=== PATIENT | male | born 2000 | race Caucasian/White ===

== ENCOUNTER 2019-04-27 18:10 | Emergency (ER) | payer OTHER, SELFPAY ==
[2019-04-27 18:54] VITALS: BP 128/66; PULSE 91; RESP 16; TEMP 36.7; O2SAT 97
--- NOTE | 2019-04-27 19:09 | ED.URI ---
HPI - URI/Sore Throat General Chief Complaint: Upper Respiratory Infection Stated Complaint: Cold/Flu symptoms Time Seen by Provider: 04/27/19 19:10 Source: patient and family History of Present Illness HPI Narrative: patient presents with cough, generalized body aches and fever for the past 24 hours. Patient states he has been exposed to influenza and wonders if he has the flu. no shortness of breath and no chest pain. normally healthy individual. Related Data Allergies Allergy/AdvReac Type Severity Reaction Status Date / Time No Known Allergies Allergy Verified 04/27/19 19:28 Review of Systems Review of Systems: Narrative: CONSTITUTIONAL: Denies chills, or sweats. Reports fever and generalized body aches EYES: Denies visual changes, redness, or discharge. ENT: Denies otalgia. Reports nasal congestion runny nose and sore throat CARDIOVASCULAR: Denies chest pain, palpitations, or edema. RESPIRATORY: Denies dyspnea. Reports occasional cough GASTROINTESTINAL: Denies abdominal pain, nausea, vomiting, or diarrhea. GENITOURINARY: Denies dysuria or hematuria. SKIN: Denies rash or itching. MUSCULOSKELETAL: Denies back pain, joint pain, or myalgia. Reports generalized body aches NEUROLOGIC: Denies headache, numbness, or weakness. PSYCHIATRIC: Denies anxiety or depression. [facility] Social History Social History Gender identity (if verbalized by the patient): Male Comments At time of signature, agree with nursing past medical, surgical, social and family history. There is no relevant family history pertinent to the presenting complaint Exam Narrative: Exam Narrative: GENERAL APPEARANCE: The patient is a well-developed, well-nourished , in no acute distress. SKIN: Skin is warm and dry without erythema, swelling or exudate. There is good turgor. No tenting. HEAD: Atraumatic. Normocephalic. No temporal or scalp tenderness. EYES: Moist and bright. Sclera and conjunctivae normal. No discharge. PERRLA. Extraocular motions intact. Gross visual acuity intact. EARS: Pinna is normal shape and contour. Clear external auditory canals. TM pearly flood with good cone of light, no erythema or suppuration. Bilateral cerumen noted no gross hearing deficit. NOSE: pink, moist mucosa with good air movement. Clear rhinorrhea without nasal flaring. Septum midline. Mouth: moist mucous membranes. THROAT; mild erythema noted to posterior oropharynx with moderate postnasal drainage. Without exudate or ulceration.. Uvula midline. Normal movement of soft palate. Mild pharyngeal erythremia no exudate no trismus no drooling able to open mouth fully NECK: Supple and nontender with full range of motion without discomfort. No meningeal signs. LUNGS: Equal and bilateral breath sounds without wheezes, rales or rhonchi. CHEST: The chest wall is without retractions or use of accessory muscles. HEART: Has a regular rate and rhythm without murmur, gallops, click or rub. ABDOMEN: Soft, nontender with positive active bowel sounds. No rebound tenderness. EXTREMITIES: Without cyanosis, clubbing or edema. Equal 2+ distal pulses and 2 second capillary refill noted. NEUROLOGIC: alert, active, developmentally normal for age. The patient moves all extremities with normal muscle strength. Normal muscle tone is noted. Normal coordination is noted. NO focal neurological findings noted. Course Vital Signs Vital signs: Vital Signs Temperature 36.7 C 04/27/19 18:54 Pulse Rate 91 04/27/19 18:54 Respiratory Rate 16 04/27/19 18:54 Blood Pressure 128/66 04/27/19 18:54 Pulse Oximetry 97 04/27/19 18:54 Temperature 36.7 C 04/27/19 18:54 Pulse Rate 91 04/27/19 18:54 Respiratory Rate 16 04/27/19 18:54 Blood Pressure 128/66 04/27/19 18:54 Pulse Oximetry 97 04/27/19 18:54 MDM - URI/Sore Throat Differential Diagnosis Differential diagnosis: Likely upper respiratory infection, croup, otitis media, vi
== END 2019-04-27 19:42 | disposition home or self-care (01) ==
PROVIDERS: Emergency Provider Nurse Practitioner Family
DX: J06.9 Acute upper respiratory infection, unspecified (principal); J02.8 Acute pharyngitis due to other specified organisms
CPT/HCPCS: 87081; 87880; 99213; G0463

== ENCOUNTER 2019-12-22 10:39 | Emergency (ER) | payer OTHER, SELFPAY ==
[2019-12-22 10:45] VITALS: BP 110/78; PULSE 117; RESP 20; TEMP 36.6; O2SAT 96
--- NOTE | 2019-12-22 10:58 | ED.GENADULT ---
HPI - General Adult General Chief complaint: Upper Respiratory Infection Stated complaint: sore throat and nausea Time Seen by Provider: 12/22/19 10:59 Source: patient and RN notes reviewed Mode of arrival: ambulatory Limitations: no limitations History of Present Illness HPI narrative: 19-year-old male presents with complaints of sore throat, cough, nasal congestion, and rhinorrhea for the past 3 days. Alvino says symptoms increased over the past 24 hours with nausea, vomiting, and diarrhea. Had approximately 10 episodes of emesis and diarrhea on 12/21/19 without abdominal pain and blood. OTC cough medications and cough drops with little relief. No high fevers, drooling, neck or throat swelling. Pain is bilateral. Hurts to swallow. Exacerbation factors consist of eating and drinking. No voice change. Tolerating liquids well. Denies chills, dyspnea, difficulty swallowing, jaw pain, dental pain, facial pain, foreign body sensation. Remains active. The patient reports he have not been diagnosed with COVID-19. The patient reports he is not waiting for the results of a COVID-19 lab test. The patient reports he do not have weakness or fatigue. The patient reports he do not have a worsening cough or shortness of breath. Denies chest pain. The patient reports he do not have any loss of taste. Denies recent traveling. Denies concerns for COVID-19 or exposures been home with limited outdoor exposure except for essential household needs, work, and return home. At this time, patient is suspected of having COVID-19. Some parts of this dictation were generated by voice recognition software and may contain typographical and/or grammatical inaccuracies. Related Data Allergies Allergy/AdvReac Type Severity Reaction Status Date / Time No Known Allergies Allergy Verified 12/22/19 10:54 Review of Systems Review of Systems: Narrative: CONSTITUTIONAL: Denies fever, chills, sweats. EYES: Denies visual changes, redness, discharge. ENT: Denies otalgia. Complains of rhinorrhea, congestion, sore throat. CARDIOVASCULAR: Denies chest pain, palpitations, edema. RESPIRATORY: Denies dyspnea, wheezing. Complains of cough with intermittent productive cough. GASTROINTESTINAL: Denies abdominal pain. Complains of nausea, vomiting, diarrhea. GENITOURINARY: Denies dysuria, hematuria, abnormal discharge. SKIN: Denies rash or itching. MUSCULOSKELETAL: Denies acute back pain, joint pain, or myalgia. NEUROLOGIC: Denies numbness or focal weakness. PSYCHIATRIC: Denies anxiety or depression. All systems reviewed & are unremarkable except as noted in HPI and below. PMFSH Past Medical History Medical History (Updated 12/22/19 @ 11:27 by MARCELINO Ruiz) Asthma No flareups since the age of 5 Surgical History Surgical History (Updated 12/22/19 @ 11:27 by MARCELINO Ruiz) No significant past surgical history Family History Family History (Updated 12/22/19 @ 11:28 by MARCELINO Ruiz) Father Narcolepsy Mother Unknown family medical history Social History Social History (Updated 12/22/19 @ 11:29 by MARCELINO Ruiz) Smoking packs per day: 0.25 Smoking cigarettes per day: 5.0 Years smoked: 9 Smoking pack-years: 2.25 Smoking status: Current every day smoker Tobacco type: cigarettes Second hand tobacco smoke exposure: Yes Alcohol intake: current Substance use: current Substance use type: marijuana Living arrangements: with family Occupation/Education: occupation Gender identity (if verbalized by the patient): Male Sexual Orientation (if Verbalized by the Patient): Straight or Heterosexual Comments At time of signature, agree with nurse past medical, surgical, social, and family history. There is no relevant family history pertinent to the presenting complaint. Exam Narrative: Exam Narrative: GENERAL: This is a well-nourished, well-developed patient, in no apparent distress. Sp
--- NOTE | 2019-12-22 11:09 | PC.NURSE ---
PT REFUSED A NASAL SWAB FOR INFLUENZA TESTING. Cj CUELLO NP ADVISED. Kami TEMPLETON RN.
== END 2019-12-22 11:24 | disposition home or self-care (01) ==
PROVIDERS: Emergency Provider Nurse Practitioner Family
DX: B34.9 Viral infection, unspecified (principal); Z20.828 Contact with and (suspected) exposure to other viral communicable diseases; F17.210 Nicotine dependence, cigarettes, uncomplicated
CPT/HCPCS: 87081; 87880; 99213; G0463

== ENCOUNTER 2019-12-27 08:23 | Emergency (ER) | payer OTHER, SELFPAY ==
[2019-12-27 08:34] VITALS: BP 110/60; PULSE 84; RESP 18; TEMP 36.2; O2SAT 99
--- NOTE | 2019-12-27 09:09 | ED.GENADULT ---
HPI - General Adult General Chief complaint: Unspecified Stated complaint: Sore Throat Time Seen by Provider: 12/27/19 09:01 Source: patient Mode of arrival: ambulatory Limitations: no limitations History of Present Illness HPI narrative: 19 years old white male complaining of sore throat over 2 weeks. Patient reports exposure to somebody was positive for strep 1 week ago. Patient was seen at urgent care with negative test for strep throat. Patient denies any fever, chills, nausea, vomiting, abdominal pain, headache, back pain, exposure to anybody was COVID-19. Related Data Allergies Allergy/AdvReac Type Severity Reaction Status Date / Time No Known Allergies Allergy Verified 12/27/19 08:43 Review of Systems Review of Systems: Narrative: CONSTITUTIONAL: Denies fever, chills, or sweats. EYES: Denies visual changes, redness, or discharge. ENT: Denies rhinorrhea, congestion, complaining of sore throat and gum pain CARDIOVASCULAR: Denies chest pain, palpitations, or edema. RESPIRATORY: Denies cough or dyspnea. GASTROINTESTINAL: Denies abdominal pain, nausea, vomiting, or diarrhea. GENITOURINARY: Denies dysuria or hematuria. SKIN: Denies rash or itching. MUSCULOSKELETAL: Denies back pain, joint pain, or myalgia. NEUROLOGIC: Denies headache, numbness, or weakness. PSYCHIATRIC: Denies anxiety or depression. PMFSH Social History Social History (Updated 12/27/19 @ 11:15 by Walter Jackson MD) Social History: Patient smokes and drinks occasionally Exam Narrative: Exam Narrative: General appearance: Well-developed, well-nourished Skin: Normal color Head: Normocephalic, nontraumatic Eyes: Clear conjunctiva ENT: Erythematous oropharynx mainly on the right side, erythematous, swollen gums, ears normal, nose normal Neck: Supple, nontender Chest and respiratory: Airway patent, no respiratory distress, no accessory muscle use Heart: Regular rate/rhythm Neurologic: Alert and oriented ?3, GROUNDS MANAGER is normal as tested, no gross motor deficit Course Course Emergency Course: Stable Vital Signs Vital signs: Vital Signs Temperature 36.2 C L 12/27/19 08:34 Pulse Rate 84 12/27/19 08:34 Respiratory Rate 18 12/27/19 08:34 Blood Pressure 110/60 12/27/19 08:34 Pulse Oximetry 99 12/27/19 08:34 Temperature 36.2 C L 12/27/19 08:34 Pulse Rate 84 12/27/19 08:34 Respiratory Rate 18 12/27/19 08:34 Blood Pressure 110/60 12/27/19 08:34 Pulse Oximetry 99 12/27/19 08:34 Medical Decision Making MDM Narrative Medical decision making narrative: Acute pharyngitis, high likely viral Differential Diagnosis Differential Diagnosis: Viral pharyngitis, strep throat, mono, gingivitis Vital Signs Vital Signs: Vital Signs Temperature 36.2 C L 12/27/19 08:34 Pulse Rate 84 12/27/19 08:34 Respiratory Rate 18 12/27/19 08:34 Blood Pressure 110/60 12/27/19 08:34 Pulse Oximetry 99 12/27/19 08:34 Temperature 36.2 C L 12/27/19 08:34 Pulse Rate 84 12/27/19 08:34 Respiratory Rate 18 12/27/19 08:34 Blood Pressure 110/60 12/27/19 08:34 Pulse Oximetry 99 12/27/19 08:34 Lab Data Labs: Lab Results 12/27/19 Range/Units 10:15 Monoscreen Pending Strep Screen Presumptive Negative *(Reference Range: Negative)* Critical Care Time Critical Care Time Critical Care Time: No Discharge Plan Discharge Clinical Impression: Acute gingivitis Acute pharyngitis Qualifiers: Pharyngitis/tonsillitis etiology: unspecified etiology Qualified Code(s): J02.9 - Acute pharyngitis, unspecified Patient Disposition: Home, Self-Care Condition: Stable
[2019-12-27 11:32] LABS: Monoscreen Negative (Negative); Negative Monotest Control Negative (Negative); Positive Monotest Control Positive (Positive)
== END 2019-12-27 11:43 | disposition home or self-care (01) ==
PROVIDERS: Emergency Provider Emergency Medicine
DX: J02.9 Acute pharyngitis, unspecified (principal); K05.00 Acute gingivitis, plaque induced; F17.200 Nicotine dependence, unspecified, uncomplicated
CPT/HCPCS: 36415; 86308; 87081; 87880; 99283

== ENCOUNTER 2024-04-07 19:05 | Emergency (ER) | payer OTHER, SELFPAY ==
--- NOTE | ~2024-04-07 | XR_ITS ---
HISTORY: trauma COMPARISON: None TECHNIQUE: 2 views of the right shoulder were performed FINDINGS: No acute fracture. The glenohumeral and acromioclavicular joint space is maintained The visualized portion of the adjacent right lung is clear. The humeral head is well seated within the glenoid fossa. IMPRESSION: No acute fracture or anterior dislocation. Reviewed, dictated and finalized at location A. ICATIONS ENGINEERING MANAGER
--- OUTSIDE RECORDS SUMMARY | 2024-04-07 19:08 | XMS_ITS ---
Author Organization Counts include 234 beds at the [facility] Address [address] [place] [address] Care Team Providers Care Flooring Grader Name Role Phone Zena Abdi Primary Care Provider [phone] Wellington Pratt [phone] REASON FOR VISIT on CRU started sub 10/05/22 Encounters Encounter Location Date Provider Diagnosis [address] [place] [address] 10/06/2022 Wellington Pratt Plan Of Treatment No Information Progress Notes * Alvino SANCHESDOB: [birth year] (23 yo M)Acc No.[id number]:10/06/2022 UNLOCKED PROGRESS NOTE Patient: Alvino VIEIRA Provider: Abdoul Pratt, MSN, RESIDENTIAL DOOR INSTALLER, MECHANICAL ARTIST-C :2000 A ge:22 Y S ex:Male Date:10/06/2022 Address:[address] [place] [address] [facility] Pcp:Zena Abdi Subjective: * Chief Complaints: * 1 . on CRU started sub 10/05/22. * Medical History: Objective: * Vitals: Assessment: Plan: * Treatment: * * Electronic signature of Naima Pratt APRN, [id number] on 04/07/2024 at 07:07 PM CHICLE GRINDER FEEDER Sign off status: Pending * Provider: Abdoul Pratt, MSN, RESIDENTIAL DOOR INSTALLER, MECHANICAL ARTIST-C Date: 0 10/06/2022 Generated for Margo campa/Kash/eTransmitting on: 04/07/2024 07:07 PM CHICLE GRINDER FEEDER
--- OUTSIDE RECORDS SUMMARY | 2024-04-07 19:08 | XMS_ITS | Patient Health Summary ---
Author Organization [facility] [email or web address] Address [address] [place] [address] Care Team Providers Care Solar Mechanical Engineer Name Role Phone Do Dietzabel Primary Care Provider + Note from [facility],non-owned Affiliates and Associated Physician Practices is amultiple site organization consisting of ambulatory clinics and hospital sitesin [place], [place], [place] and [place]. This disclosure is being madepursuant to the Care Everywhere program and may not contain all information available regarding this patient. Last updated 17.[facility] [email or web address] Allergies * Milk Protein Medications Be aware that medications may not be up to date on this document. Always verify current medications with the patient. No known medications Active Problems Problem Noted Date Diagnosed Date Chronic otitis media with effusion 08/25/2009 Ringing in ears 05/26/2009 Social History Tobacco Use Types Packs/Day Years Used Date Smoking Tobacco: Passive Smo ke Exposure - Never Smoker Cigarettes Alcohol Use Standard Drinks/Week Comments No 0 (1 standard drink = 0.6 oz pur e alcohol) Sex and Gender Information Value Date Recorded Sex Assigned at Not on file Gender Identity Not on file Sexual Orientation Not on file Last Filed Vital Signs Vital Sign Reading Time Taken Comments Blood Pressure 100/68 09/14/2009 2:15 PM CDT Pulse 100 09/14/2009 2:15 PM CDT Temperature 36.8 C (98.3 F) 09/14/2009 2:15 PM CDT Respiratory Rate 16 09/14/2009 2:15 PM CDT Oxygen Saturation 100% 09/14/2009 1:58 PM CDT Inhaled Oxygen Concentration - - Weight 31.3 kg (69 lb 1.3 oz) 09/14/2009 9:50 AM CDT Height 146 cm (4' 9.48 ) 09/14/2009 9:50 AM CDT Body Mass Index 14.7 09/14/2009 9:50 AM CDT Care Teams Solar Mechanical Engineer Relationship Specialty Start Date End Date Do Dietz DO [address] [place] [address] PCP - General 08/25/09
--- OUTSIDE RECORDS SUMMARY | 2024-04-07 19:08 | XMS_ITS | Clinical Summary ---
Author Organization [facility] [employer] Address [address] [address] Care Team Providers Care Resource Management Planner Name Role Phone Do Dietz Primary Care Provider + Source Comments [facility] [employer],non-owned Affiliates and Associated Physician Practices is amultiple site organization consisting of ambulatory clinics and hospital sitesin [place], [place], [place] and [place]. This disclosure is being madepursuant to the Care Everywhere program and may not contain all information available regarding this patient. Last updated 17.[facility] [employer] Allergies Active Allergy Reactions Criticality Noted Date Comments Milk Protein 08/25/2009 Medications Be aware that medications may not be up to date on this document. Always verify current medications with the patient. No known medications Active Problems Problem Noted Date Diagnosed Date Chronic otitis media with effusion 08/25/2009 Ringing in ears 05/26/2009 Family History Medical History Relation Name Comments Anesthesia Reaction Neg Hx Bleeding Disorders Neg Hx Childhood Hearing Disorder Neg Hx Social History Tobacco Use Types Packs/Day Years [...] Mass Index 14.7 09/14/2009 9:50 AM CDT Plan of Treatment Health Maintenance Due Date Last Done Comments HIV SCREENING 2013 HPV VACCINE (1 - Male 3-dose series) 2013 HEPATITIS C SCREENING 09/30/2016 DTAP/TDAP/TD VACCINES (1 - Tdap) 2017 HEPATITIS B VACCINE (1 of 3 - 19+ 3-dose series) 2017 COVID-19 VACCINE (1 - 2023-2 5 season) 2023 INFLUENZA VACCINE (#1) 2023 DEPRESSION SCREENING 02/28/2024 ZOSTER VACCINE (1 of 2) 2048 HIB VACCINE Aged Out No longer eligi ble based on patient's age to complete this topic MENINGOCOCCAL (Group B) VACCINE Aged Out No longer eligible based on patient's age to complete this topic MENINGOCOCCAL VACCINE Aged Out No andriy lucy eligible based on patient's age to complete this topic PNEUMOCOCCAL VACCINE Aged Out No long er eligible based on patient's age to complete this topic Care Teams Resource Management Planner Relationship Specialty Start Date End Date Do Dietz DO [address] [place] [id number] PCP - General 08/25/09
--- OUTSIDE RECORDS SUMMARY | 2024-04-07 19:08 | XMS_ITS | Patient Health Record ---
Author Organization [facility] Address [address] [place] [address] Care Team Providers Care Brazer Helper Induction Name Role Phone Zena Abdi Primary Care Provider [phone] Allergies Allergen (clinical drug ingredient) Drug/Non Drug Allergy documented on EMR Reaction Allergy Type Onset Date Status No Known Drug Allergy Unknown Drug Allergy Active No Known Food Allergy Unknown Drug Allergy Active Reason For Referral No Information Medications Medication SIG (Take, Route, Fr equency, Duration) Notes Start Date End Date Status tiZANidine HCl 4 MG 1 tablet as needed O rally every 6 hours as needed x 4 days Activ e Folic Acid 1 MG 1 tablet Orally Once a day Active Multivitamin - 1 tablet Orally Once a day Active Thiamine HCl 100 MG 1 tablet Orally Once a day for 3 day while on CRU Active Gabapentin 300 MG 1 capsule Orally thr ee times a day for 4 days Active cloNIDine HCl 0.1 MG 1 tablet Orally una ry 6 hours x 3 days Active Ativan 1 MG 1 tablet at bedtime as needed Orally Once a day Active Gabapentin 600 MG 1 tablet Orally in t he evening for 4 days Active Social History Tobacco Use: Social History Observation Description Date Details (start date - stop date) Current Smoker NA - NA Dont use, Tobacco Use/Smoking Question Answer Notes Are you a current smoker Problems Problem Type SNOMED Code ICD Code Onset Dates Problem Status W/U Status Risk Notes Problem Tobacco user (525908471) Nicotine dependence, unspecified, uncomplicated (F17.200) Active confirmed Plan Of Treatment No Information Insurance Providers Payer Name Payer Address Payer Phone Subscriber Number Group Number Insured Name Patient Relationship to Insured Coverage Start Date Coverage End Date [employer] [address] [place] [address] [phone] [id number] Alvino Melton Self - patient is the insured 3 Medical (General) History Surgical History Surgery Date(Month/Year) Hospitalization History Reason Date(Month/Year)
--- OUTSIDE RECORDS SUMMARY | 2024-04-07 19:08 | XMS_ITS | Referral Summary ---
Author Organization [facility] Address [address] [place] [address] Care Team Providers Care Road Contractor Name Role Phone Do Dietzabel Primary Care Provider + Source Comments [facility],non-owned Affiliates and Associated Physician Practices is amultiple site organization consisting of ambulatory clinics and hospital sitesin [place], [place], [place] and [place]. This disclosure is being madepursuant to the Care Everywhere program and may not contain all information available regarding this patient. Last updated 17.[facility] Allergies Active Allergy Reactions Criticality Noted Date [...] 09/14/2009 9:50 AM CDT Plan of Treatment Not on file Care Teams Road Contractor Relationship Specialty Start Date End Date Do Dietz DO [address] [place] [address] PCP - General 08/25/09
--- OUTSIDE RECORDS SUMMARY | 2024-04-07 19:08 | XMS_ITS ---
Author Organization [facility] Address [address] [place] [address] Care Team Providers Care Deputy Controller Name Role Phone Zena Abdi Primary Care Provider Nika Mcdonald [phone] Encounters Encounter Location Date Provider Diagnosis [address] [place] [address] 2022 Nika Mcdonald Plan Of Treatment No Information Progress Notes * Alvino SANCHESDOB: [birth year] (22 yo M)Acc No.[id number]:[id number] Patient: Alvino Robbins :2000 A ge:22 Y S ex:Male Address:[address] [place] [address] * true * Date: Generated for Gabrielai katheryn/Shaistag/eTransmitting on: 0 04/07/2024 07:07 PM SCHOOL BUSINESS ADMINISTRATOR
--- NOTE | 2024-04-07 19:10 | ED_ITS ---
HPI - Extremity Injury (Upper) General Chief Complaint: Extremity Injury, Upper Stated Complaint: right shoulder/ramírez on thighs Time Seen by Provider: 04/07/24 19:12 Source: patient, RN notes reviewed and old records reviewed Mode of arrival: ambulatory Limitations: no limitations History of Present Illness HPI narrative: patient presents with complaints of right shoulder pain for approximately 1 week. He reports that he tripped and fell from a standing position about 1 week ago. Says that he has had pain since. He reports that pain has decreased. He has been taking aspirin intermittently. He reports pain is increased with range of motion decreased with rest. Not helped by aspirin. No deformity. Related Data Allergies Allergy/AdvReac Type Severity Reaction Status Date / Time No Known Allergies Allergy Verified 05/26/21 14:50 Review of Systems Review of Systems: All systems reviewed & are unremarkable except as noted in HPI and below Constitutional: Constitutional: Reports no additional constitutional complaints ENT: Reports system reviewed and no additional complaints, except as documented Cardiovascular: Cardiovascular: Reports no additional cardiovascular complaints Respiratory: Respiratory: Reports no additional respiratory complaints Gastrointestinal: Gastrointestinal: Reports no additional gastrointestinal complaints Musculoskeletal: Musculoskeletal: Reports no additional musculoskeletal complaints and Reports as per HPI [facility] Past Medical History Medical History Asthma No flareups since the age of 5 Surgical History Surgical History No significant past surgical history Family History Family History Father Narcolepsy Mother Unknown family medical history Social History Social History Social History: Patient smokes and drinks occasionally Smoking packs per day: 0.25 Smoking cigarettes per day: 5.0 Years smoked: 9 Smoking pack-years: 2.25 Smoking status: Current every day smoker Tobacco type: cigarettes Second hand tobacco smoke exposure: Yes Alcohol intake: current Substance use: current Substance use type: marijuana Living arrangements: with family Occupation/Education: occupation Gender identity (if verbalized by the patient): Male Sexual Orientation (if Verbalized by the Patient): Straight or Heterosexual Comments At the time of my signature, I reviewed and agree with the nursing past medical, surgical, social, and family history. There is no relevant family history pertinent to the patient complaint. Exam Const: General: cooperative, no acute distress, alert and awake Orientation/consciousness: oriented to person, oriented to place and oriented to time HENMT: Head: normal to inspection Resp: Effort & Inspection: normal respiratory effort and able to speak in complete sentences Auscultation: clear to auscultation bilaterally, no crackles, no rales, no rhonchi and no wheezes Cardio: Palpation: normal PMI Rate: regular rate Rhythm: regular rhythm Heart sounds: S1 normal heart sound present and S2 normal heart sound present Neuro: General: oriented to person, oriented to place and oriented to time Cranial nerves: Yes CN's II-XII intact bilaterally Extrem: Right upper extremity: shoulder/upper arm normal to inspection, tenderness (posterior) and normal ROM; no deformity Psych: Appearance: grossly normal Thought process: Normal thought process present Insight: Good insight present (Psych) Judgement: Good judgement present (Psych) Course Course Level of Care: Express Care Visit Vital Signs Vital signs: Reviewed MDM - Extremity Injury (Upper) MDM Narrative Medical decision making narrative: X-ray with no abnormal findings. Start prednisone burst. Patient advised follow with primary care provider. Discharge instructions reviewed with patient, as well as provided in writing per nursing staff. The instructions also include specific and strict return/GO TO THE ER as well as f/u information. All questions have been answered, and the patient deny any further questions with discharge and discharge plan. Some parts of this dictation were generated by voice recognition software and may contain typographical and/or grammatical inaccuracies. Differential Diagnosis Differential diagnosis: Likely dislocation of shoulder Medical Records Attestation: I reviewed the patient's medical records. Imaging Data Attestation: I personally reviewed and interpreted this imaging study as follows: My impression: no acute finding Radiologist's impression: [facility] [address] [place] [address] XRay Report Signed Patient: Alvino Melton : 2000 MR#: [id number] Age: 23 Acct:[id number] Loc: [facility] ADM Date: 04/07/24Attending Dr: Ordering Physician: Shi Lomax FNP Date of Service: 04/07/24 Procedure(s): XR shoulder RT min 2V Accession Number(s): [id number] cc: Shi Lomax FNP; GUEST EXPERIENCE CAPTAIN PHYSICIAN~ HISTORY: trauma COMPARISON: None TECHNIQUE: 2 views of the right shoulder were performed FINDINGS: No acute fracture. The glenohumeral and acromioclavicular joint space is maintained The visualized portion of the adjacent right lung is clear. The humeral head is well seated within the glenoid fossa. IMPRESSION: No acute fracture or anterior dislocation. Reviewed, dictated and finalized at location A. L INSPECTOR Please be advised this is a medical document. It is intended for [id number] communication. It is written in medical language and may contain unfamiliar abbreviations or verbiage. Medical documents are intended to carry relevant information, facts as evident, and the clinical opinion of the practitioner at the time of the encounter. This report may have been done utilizing a voice recognition system. Attempts have been made to correct errors. However, there may be uncorrected grammatical, spelling, and recognition errors present. The file time of this note does not necessarily represent the time of service. Dictated By: Ivone Buckley MD 04/07/242000 Signed By: <Electronically signed by Ivone Buckley MD in OV> Discharge Plan Discharge Clinical Impression: Acute shoulder pain Patient Disposition: Home, Self-Care Condition: Stable Instructions: Antibiotic Form, Shoulder Pain (ED) Additional Instructions: Follow-up with primary care provider. Emergency department for any new or worsening symptoms Patient Language: Ukrainian Prescriptions: New prednisone 50 mg tablet 50 mg PO DAILY Qty: 5 0RF Follow-up/Referrals: PHYSICIAN,GUEST EXPERIENCE CAPTAIN [Primary Care Provider] - 2 Weeks Time of Disposition: 20:03
--- OUTSIDE RECORDS SUMMARY | 2024-04-07 19:11 | XMS_ITS | Clinical Summary ---
Author Organization [facility] Address [address] [place] [address] Phone Care Team Providers Care Certified Surgical Tech/First Assistant Name Role Phone Provider, None Primary Care Provider Unavailabl e Allergies No known active allergies Medications * This document contains information received from the source organization and may not represent a complete record from that organization. No known medications Active Problems Problem Noted Date Diagnosed Date Alcohol dependence 01/17/2023 Stimulant withdrawal 01/17/2023 Opiate dependence 01/17/2023 Severe malnutrition 01/17/2023 Polysubstance dependence 01/17/2023 Immunizations Immunization Administration Dates Next Due DTAP VACCINE 09/04/2003, 0,04/09/1999,02/05,1998 HEP B/HIB Combined Vaccine 02/05/1999,1998 Hepatitis B Vaccine, Pediatric/adolescent 11/04/1999 Hib Vaccine,unspecified Formulation 02/08/2000,0 04/09/1999 Inactivated Polio Vaccine 09/04/2003,01/2000,04/09/1999,02/05,1998 MMR Vaccine 09/04/2003,02/08/2000 Meningococcal Vaccine, Unspe cified Formulation 10/20/2009 Pneumococcal Vaccine Peds - 7 Valent 04/26/2000, 02/08/2000 TDAP Vaccine 10/20/2009 Varicella Vaccine Live 10/20/2009,04/26/2000 Social History Tobacco Use Types Packs/Day Years Used Date Smoking Tobacco: Never Assessed [facility] Utilities Answer Date Recorded In the past 12 months has [employer], gas, oil, or water company threatened to shut off services in your home? Yes 07/31/2023 Social Connection and Isolation Panel [NHANES] A nswer Date Recorded In a typical week, how many times do you talk on the phone with family, friends, or neighbors? Never 07/31/19 How often do you get togethe r with friends or relatives? Never 07/31/2023 How often do you attend chur ch or pentecostalism services? Never 07/31/2023 Do you belong to any clubs o r organizations such as quaker groups, unions, fraternal or athletic groups, or school groups? Yes 07/31/2023 How often do you attend meet ings of the clubs or organizations you belong to? Never 07/31/2023 Are you , , di vorced, , never , or living with a partner? Living with partner 07/31/2023 AUDIT-C Answer Date Recorded Q1: How often do you have a drink containing alc ohol? 2-4 times a month 07/31/2023 Q2: How many drinks containi ng alcohol do you have on a typical day when you are drinking? 5 or 6 07/31/2023 Q3: How often do you have si x or more drinks on one occasion? Monthly 07/31/2023 Overall Financial Resource Strain (CARDIA) Answe r Date Recorded How hard is it for you to pa y for the very basics like food, housing, medical care, and heating? Hard 07/31/2023 [facility] - Occupational Stress Questionnaire Answer Date Recorded Do you feel stress - tense, restless, nervous, or anxious, or unable to sleep at night because your mind is troubled all the time - these days? Very much 07/31/2023 Exercise Vital Sign Answer Date Recorde d On average, how many days pe r week do you engage in moderate to strenuous exercise (like a brisk walk)? 4 days 07/31/2023 On average, how many minutes do you engage in exercise at this level? 150+ min 07/31/2023 Hunger Vital Sign Answer Date Recorded Within the past 12 months, y ou worried that your food would run out before you got the money to buy more. Sometimes true Within the past 12 months, t he food you bought just didn't last and you didn't have money to get more. Never true 04/2023 PRAPARE - Transportation Answer Date Re corded In the past 12 months, has l ack of transportation kept you from medical appointments or from getting medications? No 04/2023 In the past 12 months, has l ack of transportation kept you from meetings, work, or from getting things needed for daily living? Yes 07/31/2023 Housing Stability Vital Sign Answer Frank e Recorded In the last 12 months, was t here a time when you were not able to pay the mortgage or rent on time? Yes 07/31/2023 In the last 12 months, how many places have you lived? 1 07/31/2023 In the last 12 months, was t here a time when you did not have a steady place to sleep or slept in a halfway (including now)? No 07/31/2023 Sex and Gender Information Value Date Recorded Sex Assigned at Not on file Legal Sex Male 11:46 PM CDT Gender Identity Not on file Sexual Orientation Not on file Last Filed Vital Signs Vital Sign Reading Time Taken Comments Blood Pressure 132/68 08/02/2023 8:00 AM CDT Pulse 69 08/02/2023 8:00 AM CDT Temperature 36.8 C (98.3 F) 08/02/2023 8:00 AM CDT Respiratory Rate 18 08/02/2023 8:00 AM CDT Oxygen Saturation 100% 08/02/2023 8:00 AM CDT Inhaled Oxygen Concentration - - Weight 65.3 kg (144 lb) 07/31/2023 9:11 PM CDT Height 188 cm (6' 2 ) 07/31/2023 9:11 PM CDT Body Mass Index 18.49 07/31/2023 9:11 PM CDT Plan of Treatment Health Maintenance Due Date Last Done Comments Hepatitis C Virus (HCV) Screening 2000 Human Papillomavirus (HPV) Immunization (1 - Male 3-dose series) 2013 DTaP/Tdap/Td Immunization (7 - Td or Tdap) 10/21/2019 10/20/2009, 09/04/2003, 02/08/2000, Additional history exists Influenza Immunization (#1) 2023 SARS-COV-2 Immunization ( - season) 2023 Respiratory Syncytial Virus (RSV) Immunization (Adult) (1 - 1-dose 75+ series) 2073 Hepatitis B Immunization Completed 000, 02/05/1999, 1998 Pneumococcal Immunization Combined Aged Out 04/26/2000, 02/08/2000 No longer eligibl e based on patient's age to complete this topic Meningococcal Immunization (ACWY) Aged Out 10/20/2009 No longer eligible based on patient's age to complete this topic Rotavirus Immunization Aged Out No lo nger eligible based on patient's age to complete this topic Insurance [facility] Advance Directives * Full Code (Latest Code Status on File) Date Activated Date Inactivated Comments 01/17/2023 11:56 AM 01/20/2023 12:52 PM CPR-Full Treatment: FULL ARREST: Attempt Resuscitation/CPR wit intubation and mechanical ventilation. PRE-ARREST: Use entire range of life support measures to stabilize the patient. Care Teams Certified Surgical Tech/First Assistant Relationship Specialty Start Date End Date Provider, None [place] PCP - General 05/15/21
--- OUTSIDE RECORDS SUMMARY | 2024-04-07 19:11 | XMS_ITS | Clinical Summary ---
Author Organization [facility] Address [address] [place] [address] Care Team Providers Care Conference Concierge Name Role Phone Yenny Drake MD Primary Care Provider Allergies Active Allergy Reactions Criticality Noted Date Comments Milk Medications benzonatate (TESSALON) 100 mg capsuleIndicati ons:Cough Take 1 capsule (100 mg total) by mouth 3 (three) times a day as needed for cough 20 capsule 02/04/2022 Active Active Problems Problem Noted Date Diagnosed Date Chronic otitis media 11/30/2010 Right lower quadrant abdominal pain 01/06/2010 Constipation 01/06/2010 Lactase deficiency 01/06/2010 Left lower quadrant pain 01/06/2010 Epigastric pain 01/06/2010 Family History Medical History Relation Name Comments Hypertension Father Hypertension - (Added by Conv) Migraines Mother Migraine Headac he - (Added by TW Conv) Relation Name Status Comments Father Mother Social History Tobacco Use Types Packs/Day Years Used Date Smoking Tobacco: Every Day Cigarettes Alcohol Use Standard Drinks/Week Comments Yes 0 (1 standard drink = 0.6 oz pur e alcohol) Sex and Gender Information Value Date Recorded Sex Assigned at Not on file Legal Sex Male 5:34 AM STAND UP FORKLIFT OPERATOR Gender Identity Not on file Sexual Orientation Not on file Obstetrics History Last Filed Vital Signs Vital Sign Reading Time Taken Comments Blood Pressure 125/76 02/04/2022 4:57 AM STAND UP FORKLIFT OPERATOR Pulse 115 02/04/2022 4:57 AM STAND UP FORKLIFT OPERATOR Temperature 37.6 C (99.6 F) 02/04/2022 4:57 AM STAND UP FORKLIFT OPERATOR Respiratory Rate 20 02/04/2022 4:57 AM STAND UP FORKLIFT OPERATOR Oxygen Saturation 100% 02/04/2022 4:57 AM STAND UP FORKLIFT OPERATOR Inhaled Oxygen Concentration - - Weight 68 kg (150 lb) 02/04/2022 4:57 AM STAND UP FORKLIFT OPERATOR Height 182.9 cm (6') 03/16/2019 4:25 PM STAND UP FORKLIFT OPERATOR Body Mass Index 20.34 03/16/2019 4:25 PM STAND UP FORKLIFT OPERATOR Plan of Treatment Health Maintenance Due Date Last Done Comments Depression Screening 1998 Hepatitis C Screening 1998 Pneumococcal vaccine <65 (1 of 1 - PPSV23 or PCV20) 2004 04/26/2000, 02/08/2000 HPV Vaccines (1 - Male 3-dos e series) 2013 Regular Well Visit/Exam 18-64 2016 DTaP/Tdap/Td Vaccine (7 - Td or Tdap) 10/21/2019 10/20/2009, 09/04/2003, 02/08/2000, Additional history exists Influenza Vaccine (#1) 2023 Varicella Vaccines Completed 10/20/2009, 04/26/[address] [place] [address] [facility] Care Teams Conference Concierge Relationship Specialty Start Date End Date Yenny Drake MD [address] [place] [address] PCP - General 06/26/17
--- OUTSIDE RECORDS SUMMARY | 2024-04-07 19:11 | XMS_ITS | Referral Summary ---
Author Organization [facility] Address [address] [place] [address] Care Team Providers Care Performance Tester Name Role Phone Yenny Drake MD Primary [...] lower quadrant pain 01/06/2010 Epigastric pain 01/06/2010 Social History Tobacco Use Types Packs/Day Years Used Date Smoking Tobacco: Every Day Cigarettes Alcohol Use Standard Drinks/Week Comments Yes 0 (1 standard drink = 0.6 oz pur e alcohol) Sex and Gender Information Value Date Recorded Sex Assigned at Not on file Legal Sex Male 5:34 AM ORACLE TECHNICAL DEVELOPER Gender Identity Not on file Sexual Orientation Not on file Last Filed Vital Signs Vital Sign Reading Time Taken Comments Blood Pressure 125/76 02/04/2022 4:57 AM ORACLE TECHNICAL DEVELOPER Pulse 115 02/04/2022 4:57 AM ORACLE TECHNICAL DEVELOPER Temperature 37.6 C (99.6 F) 02/04/2022 4:57 AM ORACLE TECHNICAL DEVELOPER Respiratory Rate 20 02/04/2022 4:57 AM ORACLE TECHNICAL DEVELOPER Oxygen Saturation 100% 02/04/2022 4:57 AM ORACLE TECHNICAL DEVELOPER Inhaled Oxygen Concentration - - Weight 68 kg (150 lb) 02/04/2022 4:57 AM ORACLE TECHNICAL DEVELOPER Height 182.9 cm (6') 03/16/2019 4:25 PM ORACLE TECHNICAL DEVELOPER Body Mass Index 20.34 03/16/2019 4:25 PM ORACLE TECHNICAL DEVELOPER Plan of Treatment Not on file Insurance [facility] [facility] Care Teams Performance Tester Relationship Specialty Start Date End Date Yenny Drake MD [address] [place] [address] PCP - General 06/26/17
[2024-04-07 19:12] VITALS: BP 123/68; PULSE 96; RESP 20; TEMP 36.9; O2SAT 100
== END 2024-04-07 20:09 | disposition home or self-care (01) ==
PROVIDERS: Emergency Provider Nurse Practitioner Family
DX: M25.511 Pain in right shoulder (principal); W18.30XA Fall on same level, unspecified, initial encounter; J45.909 Unspecified asthma, uncomplicated; F17.210 Nicotine dependence, cigarettes, uncomplicated
CPT/HCPCS: 73030; 99213; G0463